=== PATIENT | male | born 1950 | race Caucasian/White ===

== ENCOUNTER → 2021-11-02 | Outpatient (CLI) | payer MEDICARE, OTHER ==
[~2021-11-02] MED LIST: ALPRAZOLAM0.25 MG PO; AMLODIPINE BESYL5 MG PO; ASPIRIN CHEW81 MG PO; BISOPROLOL-HCT1 EAC2 PO; FINASTERIDE5 MG PO; FOLIC ACID1 MG PO; ICAPS MV TABLE1 EACH PO; METHOTREXATE2.5 MG PO; TAMSULOSIN HCL0.4 MG PO
== END ==
LOC: NM 08:16
PROVIDERS: ATTEND Internal Medicine Pulmonary Disease
DX: D86.9 Sarcoidosis, unspecified (principal); G62.9 Polyneuropathy, unspecified
CPT/HCPCS: 78802; A9556